=== PATIENT | male | born 1960 | race Two or more races ===

== ENCOUNTER 2024-06-29 14:17 | Outpatient (AMB) | payer MEDICARE, MEDICAID, SELFPAY ==
[2024-06-29 14:40] VITALS: BP 119/80; PULSE 118; RESP 18; TEMP 36.6; O2SAT 96; BMI 19.7
--- NOTE | 2024-06-29 14:40 | PD.ORTHCLVIS ---
Vital signs 06/29/24 14:40 Height 1.68 m Height Method Stated Weight 55.367 kg Weight Measurement Method Standing Scale BMI 19.7 BP 119/80 Blood Pressure Source Automatic Cuff Blood Pressure Location Right Upper Arm Position Sitting Respiration 18 Pulse 118 H Pulse Source Monitor Temp 97.8 F Temp Source Temporal Artery Scan Pulse Oximetry (%) 96 Oxygen Delivery Method Room Air Med/Allergies Allergies & Medications Allergies No Known Allergies Allergy (Verified 06/29/24 14:42) Medication Reconciliation baclofen 10 mg tablet 10 mg PO TID 06/29/24 [History Confirmed 06/29/24] carvedilol 6.25 mg tablet 6.25 mg PO BID 06/29/24 [History Confirmed 06/29/24] chlorthalidone 25 mg tablet 25 mg PO QDAY 06/29/24 [History Confirmed 06/29/24] cyclobenzaprine 10 mg tablet 10 mg PO HS 06/29/24 [History Confirmed 06/29/24] dutasteride 0.5 mg-tamsulosin ER 0.4 mg capsule ext.release 24hr mphas 1 cap PO QDAY 06/29/24 [History Confirmed 06/29/24] finasteride 5 mg tablet 5 mg PO QDAY 06/29/24 [History Confirmed 06/29/24] folic acid 1 mg tablet 1 mg PO QDAY 06/29/24 [History Confirmed 06/29/24] lisinopril 10 mg tablet 10 mg PO QDAY 06/29/24 [History Confirmed 06/29/24] lorazepam 0.5 mg tablet 0.5 mg PO QDAY PRN 06/29/24 [History Confirmed 06/29/24] oxycodone-acetaminophen 10 mg-325 mg tablet (Percocet) 1 tab PO Q6H PRN 06/29/24 [History Confirmed 06/29/24] Exam Exam Patient is in no acute distress and is cooperative with the examination today. Breathing is nonlabored. In no respiratory distress. Patient has no paraspinal tenderness. Spinal deformity cannot be appreciated. The gait of the patient is nonantalgic Bilateral extremities were evaluated and demonstrates sensation intact to light touch. Palpable pedal pulses are present. No significant edema is present. Bilateral knees were examined and the patient has full strength and range of motion.. The right hip was examined. Patient was able to flex to 90 degrees, adduct to 30 degrees, abduct to 40 degrees, internally rotate to 20 degrees, and externally rotate to 20 degrees. Patient has a negative logroll. Stinchfield is negative. The patient is nontender diffusely to touch. The left hip was examined. Patient was able to flex to 90 degrees, adduct to 30 degrees, abduct to 40 degrees, internally rotate to 20 degrees, and externally rotate to 20 degrees. Patient has a painful logroll. X-rays cannot Be viewed by me today. This demonstrates mixed metastatic sclerosis and mineralization of the left ischium, superior and inferior pubic ramus.. 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 I discussed with the patient that this is a very complex problem especially since he has active cancer and is on active chemotherapy. I actually recommend that he see an orthopedic oncologist as there was one in the area given the amount of coordination of care This will take and because the issue is likely secondary to radiation and possibly his cancer. We give him the name of a orthopedic oncologist in the area and will send a referral to him. I discussed with him that he did not bring in x-rays of his heart for me to give a professional opinion And I am solely going off the referral packet from [facility]. 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) Reason for Visit:: LEFT HIP PAIN Seen by Clinical Staff ONLY (RN/MA): No Barber Instructor Required: No PCP or OBGYN visit in last 3 months: Yes Hx Now: No Do You Feel Safe at Home: Yes Authorities Contacted: N/A Questionairres Past Medical History Past Medical History Have you ever been diagnosed with any of the following: Subjective Visit Visit for: new patient and hip (LEFT HIP) Immunization / Flu Flu Vaccine in the Last 12 Months: No Flu Vaccine Exclusion Criteria: Refused by Patient History of Present Illness Chief complaint: Left hip pain Patient is a 64-year-old male with metastatic lung cancer to the bones including the left hip. He does not have any x-rays with him today. Referral she reports that he has metastatic cancer to the left pubic ramus and ischium. He is also had radiation and is on chemotherapy currently. He reports significant pain when he walks and is using a cane. Personal History Red flag PMH: none Pain Pain level (0-10): 9 Pain duration: 1 YEAR Pain location: anterior Pain quality: dull and aching Pain timing: night Associated signs & symptoms: weakness and stiffness Ambulatory data Ambulatory device: walker Walking distance (minutes): 1 Treatments Number of previous injections: 0 Number of Physical Therapy sessions: 2 Improvement with PT: No Improvement with NSAIDS: n/a Review of Systems Review of Systems: All systems negative unless otherwise noted in HPI.
== END 2024-06-29 14:52 | disposition home or self-care (01) ==
PROVIDERS: PCP Family Medicine; Referring Provider Family Medicine; Supervising Provider Orthopaedic Surgery Adult Reconstructive Orthopaedic Surgery; Visit Provider Orthopaedic Surgery Adult Reconstructive Orthopaedic Surgery
DX: M25.552 Pain in left hip (principal); C79.51 Secondary malignant neoplasm of bone
CPT/HCPCS: 99203; G0463